=== PATIENT | female | born 1975 | race Caucasian/White ===

== ENCOUNTER 2017-05-02 06:12 | Day surgery (SDC) | payer OTHER ==
[2017-05-02 06:37] LABS: ADD MAN DIFF? NO
[2017-05-02 06:40] LABS: BASOPHILS % 0.6 % (0.0-2.0); EOSINOPHILS # 0.1 10^3/ul (0.0-0.5); EOSINOPHILS % 1.8 % (0.0-7.0); HEMOGLOBIN 11.5 g/dl (12.0-16.0); LYMPHOCYTES # 2.4 10^3/ul (0.8-2.9); LYMPHOCYTES % 33.7 % (15.0-51.0); MEAN CORPUSCULAR HEMOGLOBIN 26.7 pg (29.0-33.0); MEAN CORPUSCULAR HGB CONC 31.1 g/dl (32.0-37.0); MEAN CORPUSCULAR VOLUME 85.8 fl (82.0-101.0); MONOCYTE # 0.5 10^3/ul (0.3-0.9); MONOCYTES % 7.7 % (0.0-11.0); NEUTROPHIL # 3.9 10^3/ul (1.6-7.5); NEUTROPHILS % 55.6 % (39.0-77.0); PLATELET COUNT 233 10^3/UL (140-415); RED BLOOD COUNT 4.31 10^6/ul (4.20-5.40); RED CELL DISTRIBUTION WIDTH 19.9 % (11.5-14.5)
[2017-05-02 06:58] LABS: INR 0.91; PROTIME 12.3 Sec (11.9-14.9)
[2017-05-02] MEDS ORDERED: FENTAnyl 50 MCG/ML VIAL (06:59)
[2017-05-02] MEDS ORDERED: MIDAZOLAM 1 MG/ML 2 ML INJ (06:59)
[2017-05-02] MEDS ORDERED: HEPARIN 1000 UNITS/ML 10 ML INJ (06:59)
[2017-05-02] MEDS ORDERED: VERAPAMIL 5 MG INJ (06:59)
[2017-05-02] MEDS ORDERED: IODIXANOL LOCM 100 ML BTL (06:59)
[2017-05-02] MEDS ORDERED: NITROGLYCERIN (IC) 100 MCG/ML INJ (06:59)
[2017-05-02] MEDS ORDERED: LIDOCAINE 1% (MDV) 20 ML INJ (06:59)
[2017-05-02 07:11] LABS: ANION GAP 11 (8-16); CARBON DIOXIDE 26 mmol/L (21-31); CHLORIDE 110 mmol/L (97-110); GLUCOSE 92 mg/dl (70-220)
[2017-05-02 07:12] LABS: BLOOD UREA NITROGEN 13 mg/dl (7-20); CALCIUM 8.5 mg/dl (8.4-10.2); CREATININE 0.64 mg/dl (0.44-1.00); POTASSIUM 3.7 mmol/L (3.5-5.1); SODIUM 143 mmol/L (135-144)
[2017-05-02] MEDS ORDERED: SOD CHLORIDE 0.9% 500 ML (07:24)
[2017-05-02] MEDS ORDERED: SOD CHLORIDE 0.9% 1,000 ML IV (07:53)
== END 2017-05-02 10:16 | disposition home or self-care (01) ==
LOC: SDS 06:12
DX: R07.9 Chest pain, unspecified (principal)
CPT/HCPCS: 80048; 84703; 85025; 85610; 93005; 93454

== ENCOUNTER 2017-10-06 16:20 | Observation (INO) | payer OTHER ==
[2017-10-06 16:36] LABS: ADD MAN DIFF? NO
[2017-10-06] MEDS: ONDANSETRON 4 MG INJ IV ×2 (16:38→20:55)
[2017-10-06] MEDS: HYDROmorphONE 1 MG/ML SYG IV ×2 (16:39→22:36)
[2017-10-06 16:40] LABS: HEMATOCRIT 32.7 % (37.0-47.0); HEMOGLOBIN 9.7 g/dl (12.0-16.0); LYMPHOCYTES # 0.6 10^3/ul (0.8-2.9); LYMPHOCYTES % 11.1 % (15.0-51.0); MEAN CORPUSCULAR HEMOGLOBIN 25.9 pg (29.0-33.0); MEAN CORPUSCULAR HGB CONC 29.7 g/dl (32.0-37.0); MEAN CORPUSCULAR VOLUME 87.4 fl (82.0-101.0); MEAN PLATELET VOLUME 10.5 fl (7.4-10.4); MONOCYTES % 0.7 % (0.0-11.0); NEUTROPHIL # 4.8 10^3/ul (1.6-7.5); NEUTROPHILS % 87.8 % (39.0-77.0); PLATELET COUNT 247 10^3/UL (140-415); RED BLOOD COUNT 3.74 10^6/ul (4.20-5.40); RED CELL DISTRIBUTION WIDTH 16.2 % (11.5-14.5)
[2017-10-06 16:40] LABS: WHITE BLOOD COUNT 5.5 10^3/ul (4.8-10.8)
[2017-10-06] MEDS: SOD CHLORIDE 0.9% 1,000 ML IV (16:40)
[2017-10-06 16:58] LABS: ANION GAP 7 (8-16); BLOOD UREA NITROGEN 5 mg/dl (7-20); CALCIUM 6.4 mg/dl (8.4-10.2); CARBON DIOXIDE 20 mmol/L (21-31); CHLORIDE 113 mmol/L (97-110); CREATININE 0.42 mg/dl (0.44-1.00); GLUCOSE 109 mg/dl (70-220); POTASSIUM 3.2 mmol/L (3.5-5.1); SODIUM 137 mmol/L (135-144)
[2017-10-06] MEDS: HYDROmorphONE 2 MG/ML SYG IV (18:21)
[2017-10-06] MEDS ORDERED: NALOXONE (0.4 MG/ML) INJ IV (19:00)
[2017-10-06] MEDS ORDERED: NACL 0.9% 3 ML SYG IV (19:00)
[2017-10-06] MEDS ORDERED: IBUPROFEN 600 MG TAB PO (19:00)
[2017-10-06] MEDS: POTASSIUM CHLORIDE (SR) 20 MEQ TAB PO (19:45)
[2017-10-06] MEDS: KETOROLAC 30 MG INJ IV (19:45)
[2017-10-06] MEDS: DOXYCYCLINE 100 MG TAB PO (19:46)
[2017-10-06] MEDS: HYDROmorphONE 0.5 MG/0.5 ML SYG IV (19:59)
[2017-10-06] MEDS: PROPRANOLOL 10 MG TAB PO (20:52)
[2017-10-06] MEDS: FERROUS SULFATE (EC) 325 MG TAB PO (20:52)
[2017-10-06] MEDS: BUSPIRONE 5 MG TAB PO (20:52)
[2017-10-06] MEDS ORDERED: BUSPIRONE 5 MG TAB PO (21:00)
[2017-10-06] MEDS: HYDROmorphONE 0.2 MG/ML PCA IV (21:44)
[2017-10-06] MEDS: ONDANSETRON 4 MG TAB PO (22:44)
[2017-10-07] MEDS: KETOROLAC 30 MG INJ IV ×2 (01:21→08:00)
[2017-10-07] MEDS: ACETAMINOPHEN 325 MG TAB PO ×2 (04:18→13:12)
[2017-10-07] MEDS: HYDROmorphONE 0.2 MG/ML PCA IV (04:29)
[2017-10-07] MEDS: ONDANSETRON 4 MG INJ IV (04:58)
[2017-10-07] MEDS ORDERED: ONDANSETRON 4 MG INJ IV (05:00)
[2017-10-07 05:36] LABS: ADD MAN DIFF? NO
[2017-10-07 05:42] LABS: WHITE BLOOD COUNT 15.1 10^3/ul (4.8-10.8)
[2017-10-07 05:42] LABS: BASOPHILS % 0.2 % (0.0-2.0); HEMATOCRIT 31.7 % (37.0-47.0); HEMOGLOBIN 9.4 g/dl (12.0-16.0); LYMPHOCYTES # 1.7 10^3/ul (0.8-2.9); LYMPHOCYTES % 11.4 % (15.0-51.0); MEAN CORPUSCULAR HGB CONC 29.7 g/dl (32.0-37.0); MEAN CORPUSCULAR VOLUME 87.6 fl (82.0-101.0); MEAN PLATELET VOLUME 10.9 fl (7.4-10.4); MONOCYTE # 0.8 10^3/ul (0.3-0.9); MONOCYTES % 5.2 % (0.0-11.0); NEUTROPHIL # 12.4 10^3/ul (1.6-7.5); NEUTROPHILS % 82.6 % (39.0-77.0); PLATELET COUNT 247 10^3/UL (140-415); RED BLOOD COUNT 3.62 10^6/ul (4.20-5.40); RED CELL DISTRIBUTION WIDTH 16.1 % (11.5-14.5)
[2017-10-07] MEDS: PANTOPRAZOLE (EC) 40 MG TAB PO (06:00)
[2017-10-07] MEDS: DOXYCYCLINE 100 MG TAB PO ×2 (08:00→18:20)
[2017-10-07 08:06] LABS: ALANINE AMINOTRANSFERASE 20 IU/L (13-69); ALBUMIN 3.3 g/dl (3.3-4.9); ALBUMIN/GLOBULIN RATIO 1.13; ALKALINE PHOSPHATASE 42 IU/L (42-121); ANION GAP 13 (8-16); ASPARTATE AMINO TRANSFERASE 16 IU/L (15-46); BILIRUBIN,INDIRECT 0.2 mg/dl (0-1.1); BILIRUBIN,TOTAL 0.2 mg/dl (0.2-1.3); BLOOD UREA NITROGEN 8 mg/dl (7-20); CALCIUM 7.8 mg/dl (8.4-10.2); CARBON DIOXIDE 22 mmol/L (21-31); CHLORIDE 106 mmol/L (97-110); CREATININE 0.57 mg/dl (0.44-1.00); GLUCOSE 110 mg/dl (70-220); MAGNESIUM 1.5 mg/dl (1.7-2.5); PHOSPHORUS 2.9 mg/dl (2.5-4.9); POTASSIUM 3.6 mmol/L (3.5-5.1); SODIUM 137 mmol/L (135-144); TOTAL PROTEIN 6.2 g/dl (6.1-8.1)
[2017-10-07] MEDS: PROPRANOLOL 10 MG TAB PO (09:00)
[2017-10-07] MEDS: FERROUS SULFATE (EC) 325 MG TAB PO ×2 (09:43→13:12)
[2017-10-07] MEDS: SERTRALINE 50 MG TAB PO (09:43)
[2017-10-07] MEDS: ENOXAPARIN 40 MG/0.4 ML SYG SC (09:50)
[2017-10-07] MEDS ORDERED: VITAMIN A & D 5 GM OINT PACKET TOP (10:01)
[2017-10-07] MEDS: BUSPIRONE 5 MG TAB PO (10:55)
[2017-10-07] MEDS ORDERED: SENNA/DOCUSATE NA (8.6MG/50MG) TAB PO (11:30)
[2017-10-07] MEDS: HYDROCODONE/APAP (5/325) TAB PO ×2 (14:49→18:20)
[2017-10-07] MEDS: DIPHENHYDRAMINE 25 MG CAP PO (14:49)
[2017-10-07] MEDS: MAGNESIUM OXIDE 400 MG TAB PO (14:49)
== END 2017-10-07 19:23 | disposition home or self-care (01) ==
LOC: E/R 16:20 → PP2 17:44
DX: G89.18 Other acute postprocedural pain (principal); D25.9 Leiomyoma of uterus, unspecified; F32.9 Major depressive disorder, single episode, unspecified
CPT/HCPCS: 36415; 80048; 80053; 83735; 84100; 84703; 85025; 96374; 96375; 99217; 99285-25